=== PATIENT | male | born 1980 | race African-American/Black ===

== ENCOUNTER 2016-08-13 19:21 | Emergency (ER) | payer OTHER ==
[~2016-08-13] VITALS: Ht 167.6 cm; Wt 82.0 kg
[~2016-08-13 19:21] MED LIST: ALBU8I INH; PRED20 PO
[2016-08-13 19:22] VITALS: BP 133/73; PULSE 90; RESP 18; TEMP 98.2; O2SAT 98
[2016-08-13] MEDS ORDERED: DICL50TA3 PO (20:10)
[2016-08-13] MEDS ORDERED: BACT800T5 PO (20:10)
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
[2016-08-13] MEDS ORDERED: LIDOCAINE 1%/EPINEPHrine 1:100,000 SOLN 20 ML VIAL INFIL ONE (20:15)
== END 2016-08-13 20:51 | disposition home or self-care (01) ==
LOC: NEPB 19:21
DX: L72.3 Sebaceous cyst (principal)
CPT/HCPCS: 10061

== ENCOUNTER 2018-04-27 09:09 | Observation (INO) ==
[2018-04-27] MEDS ORDERED: Morphine Inj 4 MG/ML Vial IV.PUSH ONE (09:33)
--- NOTE | 2018-04-27 09:36 | ED ---
HPI General Chief Complaint: Chest Pain Stated Complaint: chest pain Time Seen by Provider: 04/27/18 09:33 Source: patient Mode of arrival: ambulatory Limitations: no limitations History of Present Illness HPI narrative: 37-year-old male with no medical history presenting with complaint of chest pain since yesterday. Onset was at rest while he was getting ready to go to work and he has had several episodes yesterday and today lasting for a couple of minutes. Pain initially feels tight and then has episode of sharp stabbing pain. His grandmother at the age of 45 from heart attack. His blood pressure is elevated today 155/72 and he denies history of hypertension. Denies drugs. MD complaint: Reports chest pain STEMI Alert: No Onset (ago): day(s) (1) Duration: intermittent Onset: during rest Pain location: Reports left chest Severity: moderate Severity scale (1-10): 6 Quality: Reports tightness and sharp Pain radiation: Reports none Relieving factors: nothing Exacerbating factors: nothing Context: Denies recent illness, recent surgery, recent immobilization, recent travel and new medications Associated symptoms: Denies nausea, vomiting, diaphoresis, dyspnea, palpitations and leg swelling Treatments prior to arrival chest pain: Reports none Related Data Home Medications Medication Instructions Recorded Confirmed No Known Home Medications 04/27/18 04/27/18 Allergies Allergy/AdvReac Type Severity Reaction Status Date / Time No Known Allergies Allergy Verified 04/27/18 09:22 Review of Systems ROS: all other systems reviewed are negative Cardiovascular Reports system reviewed and no additional complaints, except as docu Respiratory Reports system reviewed and no additional complaints, except as docu PMFSH Surgical History Surgical History Hx of chest tube placement (Acute) No history of previous surgery (Acute) Social History Social History Substance History: No History of Abuse Second Hand Smoke Exposure: No Smoking Status: Former smoker How Often Do You Have a Drink Containing Alcohol: 2 to 4 times a month Recent Travel in [facility] within the Last 8 Weeks: Yes Recent Out of Country Travel within the Last 8 Weeks: No Substance Abuse Detail Marijuana: Substance Use Status: Active Immunization History Tetanus Immunization: Unsure Exam Narrative Exam Narrative: GENERAL: Alert and oriented in no distress. Well nourished SKIN: Focused skin assessment warm/dry. HEAD: Atraumatic. Normocephalic. EYES: Pupils equal and round. No scleral icterus. No injection or drainage. ENT: No nasal bleeding or discharge. Mucous membranes pink and moist. NECK: Trachea midline. No JVD. CARDIOVASCULAR: Regular rate and rhythm. No murmur appreciated. RESPIRATORY: No accessory muscle use. Clear to auscultation. Breath sounds equal bilaterally. GASTROINTESTINAL: Abdomen soft, non-tender, nondistended. Hepatic and splenic margins not palpable. MUSCULOSKELETAL: No obvious deformities. No clubbing. No cyanosis. No edema. NEUROLOGICAL: Awake and alert. No obvious cranial nerve deficits. Motor grossly within normal limits. Normal speech. PSYCHIATRIC: Appropriate mood and affect; insight and judgment normal. Course Hospital Course: for further evaluation of his chest pain to rule out acute coronary syndrome as well as evaluation for possible new onset diabetes.Cardiac workup was initiated. Was unremarkable. However the patient has a fasting glucose of 200 and no history of diabetes so instead of placing the chest pain unit with admit under observation Reevaluation(s) Reevaluation #1: Resting Comfortably no distress Time: 10:00 Initial Documented Vital Signs Temperature 98.3 F 04/27/18 09:15 Pulse Rate 72 04/27/18 09:15 Respiratory Rate 16 04/27/18 09:15 Blood Pressure 155/72 H 04/27/18 09:15 Pulse Oximetry 98 04/27/18 09:15 Last Documented Vital Signs Temperature 98.0 F 04/27/18 12:00 Pulse Rate 56 L 04/27/18 12:00 Respiratory Rate 18 04/27/18 12:00 Blood Pressure 123/82 04/27/18 12:00 Pulse Oximetry 100 04/27/18 12:00 Medical Decision Making [facility] Narrative Medical Screen Exam Complete: Yes Emergency Medical Condition: Yes Lab Data Result diagrams: 04/27/18 09:40 04/27/18 09:40 Lab Results 04/27/18 04/27/18 04/27/18 Range/Units 09:40 09:40 10:00 WBC 6.2 (4.0-11.0) th/mm3 RBC 4.44 L (4.50-5.90) mil/mm3 Hgb 14.7 (13.0-17.0) gm/dL Hct 41.8 (39.0-51.0) % MCV 94.2 (80.0-100.0) fL MCH 33.1 (27.0-34.0) pg MCHC 35.1 (32.0-36.0) % RDW 13.1 (11.6-17.2) % Plt Count 253 (150-450) th/mm3 MPV 9.0 (7.0-11.0) fL Neut % (Auto) 43.7 (16.0-70.0) % Lymph % (Auto) 34.1 (9.0-44.0) % Gonzales % (Auto) 7.7 (0.0-8.0) % Eos % (Auto) 13.5 H (0.0-4.0) % Baso % (Auto) 1.0 (0.0-2.0) % Neut # (Auto) 2.7 (1.8-7.7) th/mm3 Lymph # (Auto) 2.1 (1.0-4.8) th/mm3 Gonzales # (Auto) 0.5 (0.0-0.9) th/mm3 Eos # (Auto) 0.8 H (0.0-0.4) th/mm3 Baso # (Auto) 0.1 (0.0-0.2) th/mm3 WBC Differential . Differential Comment Auto diff final Sodium 136 (136-145) meq/L Potassium 4.0 (3.5-5.1) meq/L Chloride 103 (98-107) meq/L Carbon Dioxide 24.5 (21.0-32.0) meq/L Anion Gap 9 (5-15) meq/L BUN 10 (7-18) mg/dL Creatinine 1.14 (0.60-1.30) mg/dL Estimated GFR 89 (>89) mL/min POC Glucose (68-110) mg/dl Random Glucose 200 H (74-106) mg/dL Calcium 8.7 (8.5-10.1) mg/dL Total Creatine Kinase 211 (39-308) U/L CK-MB (CK-2) Less than 1.0 (0.5-3.6) ng/mL Troponin I Less than 0.02 L (0.02-0.05) ng/mL Urine Opiates Screen Neg (Neg) Ur Barbiturates Screen Neg (Neg) Ur Amphetamines Screen Neg (Neg) U Benzodiazepines Scrn Neg (Neg) Urine Cocaine Screen Neg (Neg) U Cannabinoids Screen Pos H (Neg) 04/27/18 04/27/18 Range/Units 12:46 13:40 WBC (4.0-11.0) th/mm3 RBC (4.50-5.90) mil/mm3 Hgb (13.0-17.0) gm/dL Hct (39.0-51.0) % MCV (80.0-100.0) fL MCH (27.0-34.0) pg MCHC (32.0-36.0) % RDW (11.6-17.2) % Plt Count (150-450) th/mm3 MPV (7.0-11.0) fL Neut % (Auto) (16.0-70.0) % Lymph % (Auto) (9.0-44.0) % Gonzales % (Auto) (0.0-8.0) % Eos % (Auto) (0.0-4.0) % Baso % (Auto) (0.0-2.0) % Neut # (Auto) (1.8-7.7) th/mm3 Lymph # (Auto) (1.0-4.8) th/mm3 Gonzales # (Auto) (0.0-0.9) th/mm3 Eos # (Auto) (0.0-0.4) th/mm3 Baso # (Auto) (0.0-0.2) th/mm3 WBC Differential Differential Comment Sodium (136-145) meq/L Potassium (3.5-5.1) meq/L Chloride (98-107) meq/L Carbon Dioxide (21.0-32.0) meq/L Anion Gap (5-15) meq/L BUN (7-18) mg/dL Creatinine (0.60-1.30) mg/dL Estimated GFR (>89) mL/min POC Glucose 87 (68-110) mg/dl Random Glucose (74-106) mg/dL Calcium (8.5-10.1) mg/dL Total Creatine Kinase (39-308) U/L CK-MB (CK-2) (0.5-3.6) ng/mL Troponin I Less than 0.02 L (0.02-0.05) ng/mL Urine Opiates Screen (Neg) Ur Barbiturates Screen (Neg) Ur Amphetamines Screen (Neg) U Benzodiazepines Scrn (Neg) Urine Cocaine Screen (Neg) U Cannabinoids Screen (Neg) Imaging Data Radiologist's impression: Chest X-Ray 04/27/18 09:33 CONCLUSION: 1.No acute cardiopulmonary findings. 2. Similar compared to previous dated 02/18/2015 Discharge Plan Discharge Disposition Patient Disposition: 01 Discharge Home Discharge Condition Condition: Stable Discharge Order Discharge Orders: Discharge Order (Routine); Ordered 04/27/18 Ordered By: Emely Jackson Discharge Details Anticipated Discharge Date: 04/27/18 Physicians Team ED Provider: Marty Helms Primary Care Provider: Primary Care Virginia Rodriguez Attending Provider: Corey Shoemaker Status ED Status: Left Department Discharge Information Discharge Date/Time: 04/27/18 12:35
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
[2018-04-27 10:20] LABS: Baso # (Auto) 0.1 th/mm3 (0.0-0.2); Eos # (Auto) 0.8 th/mm3 (0.0-0.4); Eos % (Auto) 13.5 % (0.0-4.0); Hematocrit 41.8 % (39.0-51.0); Hemoglobin 14.7 gm/dL (13.0-17.0); Lymph # (Auto) 2.1 th/mm3 (1.0-4.8); Lymph % (Auto) 34.1 % (9.0-44.0); Mean Corpuscular HGB Conc 35.1 % (32.0-36.0); Mean Corpuscular Hemoglobin 33.1 pg (27.0-34.0); Mean Corpuscular Volume 94.2 fL (80.0-100.0); Mono # (Auto) 0.5 th/mm3 (0.0-0.9); Mono % (Auto) 7.7 % (0.0-8.0); Neut # (Auto) 2.7 th/mm3 (1.8-7.7); Neut % (Auto) 43.7 % (16.0-70.0); Platelet Count 253 th/mm3 (150-450); Red Blood Count 4.44 mil/mm3 (4.50-5.90); Red Cell Distribution Width 13.1 % (11.6-17.2); White Blood Count 6.2 th/mm3 (4.0-11.0)
[2018-04-27 10:37] LABS: Anion Gap 9 meq/L (5-15); Blood Urea Nitrogen 10 mg/dL (7-18); Calcium 8.7 mg/dL (8.5-10.1); Carbon Dioxide 24.5 meq/L (21.0-32.0); Chloride 103 meq/L (98-107); Glomerular Filtration Rate 89 mL/min (>89); Glucose,Random 200 mg/dL (74-106); Sodium 136 meq/L (136-145)
[2018-04-27 10:41] LABS: Creatine Kinase 211 U/L (39-308)
[2018-04-27 11:38] LABS: Amphetamine Screen,Urine Neg (Neg); Barbiturate Screen,Urine Neg (Neg); Cannabinoid Screen,Urine Pos (Neg); Cocaine Screen,Urine Neg (Neg)
[2018-04-27 11:39] LABS: Opiate Screen,Urine Neg (Neg)
[2018-04-27] MEDS ORDERED: Bisacodyl 10 MG Supp RECTAL PRN (11:51)
[2018-04-27] MEDS ORDERED: Acetaminophen 325 MG Tablet PO PRN (11:51)
--- NOTE | 2018-04-27 11:57 | P.HPIM ---
History of Present Illness Service: [facility] Primary Care Physician: No Primary Care Physician Chief Complaint: Chest pain History of Present Illness: Mr. Yañez is a 37-year-old black male with no significant past medical history who presented to the emergency room with complaint of chest pain that started yesterday. Patient indicates that he was getting ready for work yesterday when he started having left chest wall pain that he describes as sharp , "like needles", no radiation, no nausea, no diaphoresis, no dizziness. Increased with deep breathing and palpation. Indicates that he took Motrin and the pain eased off. Indicates that symptoms lasted for about 60 seconds. He had a couple more episodes throughout the day. This morning the symptoms persisted therefore he presented to the emergency room. Patient indicates he had similar symptoms about 6 months ago and did not seek any medical assistance. 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 Denies any type of injury. Denies any history hypertension, no coronary artery disease, no hyperlipidemia, no diabetes. Denies any illegal drug use, urine drug screen positive for marijuana. Does smoke 1 pack/week which he quit 3 days ago. His grandmother at age 45 from a heart attack. Mother is alive and well, no history of coronary artery disease. He does not take any medications at home. In the emergency room, patient was evaluated. Laboratory workup was completed, troponin was negative, EKG was reviewed by me, did not reveal any ST segment elevation. He had a blood glucose of 200 on admission, denies history of diabetes. Indicates that he did drink coffee. Patient received morphine and aspirin, indicates pain is relieved at this time. Has no other complaints, no recent fever, no chills, no nausea, no vomiting, no diarrhea. Patient is admitted for further evaluation and treatment. - Diagnosis (1) Atypical chest pain Review of Systems All other systems reviewed negative except as stated in [place] - History History Provided By: Patient - Medical History Medical History: Medical History (Last Updated 04/27/18 @ 16:48 by GABBY Hernandez) Patient denies medical problems - Surgical History Surgical History: Surgical History (Last Reviewed 04/27/18 @ 16:48 by GABBY Hernandez) Hx of chest tube placement No history of previous surgery - Family History Family History: Family History (Last Updated 04/27/18 @ 16:49 by GABBY Hernandez) Grandparent Myocardial infarct Father Throat cancer - Social History I have reviewed the patient's Social History: Yes - Tobacco History Second Hand Smoke Exposure: No Smoking Status: Former smoker (quit smoking 3 days ago, smoked 1 pack per week since age 20) - Alcohol History How Often Do You Have a Drink Containing Alcohol: 2 to 4 times a month - Substance Use History Substance History: Active Abuse (marijuana) - Substance Use Type Marijuana Status: Active - Travel History Recent Travel in the [place] Within the Last 8 Weeks: No Recent Travel Out of the Country Within the Last 8 Weeks: No - Immunization History Tetanus Immunization: Unsure Medications and Allergies Active Medications: Active Medications Acetaminophen (Tylenol) 650 mg PO Q4H PRN PRN Reason: Temp > 100.4 Al Hydroxide/Mg Hydroxide (Milk Of Magnesia Liq) 30 ml PO Q12H PRN PRN Reason: Mild Constipation Bisacodyl (Dulcolax Supp) 10 mg RECTAL DAILY PRN PRN Reason: SEVERE CONSITIPATION Lactulose (Lactulose Liq) 30 ml PO DAILY PRN PRN Reason: SEVERE CONSITIPATION Ondansetron HCl (Zofran Inj) 4 mg IV.PUSH Q6H PRN PRN Reason: NAUSEA OR VOMITING Senna/Docusate Sodium ([place]id-Colace) 1 tab PO BID TAMERA Sennosides (Senokot) 17.2 mg PO Q12H PRN PRN Reason: Moderate Constipation Sodium Chloride (Ns Flush) 2 ml IV.FLUSH UNSCH PRN PRN Reason: FLUSH AFTER USING IV ACCESS Allergies Allergy/AdvReac Type Severity Reaction Status Date / Time No Known Allergies Allergy Verified 04/27/18 09:22 Home Medications Medication Instructions Recorded Confirmed Type No Known Home Medications 04/27/18 04/27/18 History Exam Vital signs: Vital Signs 04/27/18 09:15 04/27/18 09:33 04/27/18 10:15 Temperature 98.3 F Pulse Rate 72 66 Respiratory Rate 16 16 Blood Pressure 155/72 H 127/67 Pulse Oximetry 98 97 97 Intake & Output 04/26/18 04/27/18 04/27/18 18:59 06:59 18:59 Weight 70.76 kg Narrative: GENERAL: Well-nourished, well-developed patient in no apparent distress. SKIN: Warm and dry. HEAD: Atraumatic. Normocephalic. EYES: Pupils equal and round. No scleral icterus. No injection or drainage. ENT: No nasal bleeding or discharge. Mucous membranes pink and moist. NECK: Trachea midline. No JVD. CARDIOVASCULAR: Regular rate and rhythm. CHEST: No chest wall abnormality noted, reproducible chest discomfort when palpating left anterior chest wall above breast. RESPIRATORY: No accessory muscle use. Clear to auscultation. Breath sounds equal bilaterally. GASTROINTESTINAL: Abdomen soft, non-tender, nondistended. Hepatic and splenic margins not palpable. MUSCULOSKELETAL: Extremities without clubbing, cyanosis, or edema. No obvious deformities. NEUROLOGICAL: Awake and alert. No obvious cranial nerve deficits. Motor grossly within normal limits. Five out of 5 muscle strength in the arms and legs. Normal speech. PSYCHIATRIC: Appropriate mood and affect; insight and judgment normal. Results - Labs CBC & Chem 7: 04/27/18 09:40 04/27/18 09:40 Labs: Short CBC 04/27/18 Range/Units 09:40 WBC 6.2 (4.0-11.0) th/mm3 Hgb 14.7 (13.0-17.0) gm/dL Hct 41.8 (39.0-51.0) % Plt Count 253 (150-450) th/mm3 BMP 04/27/18 09:40 Sodium 136 Potassium 4.0 Chloride 103 Carbon Dioxide 24.5 BUN 10 Creatinine 1.14 Calcium 8.7 Cardiac Enzymes 04/27/18 Range/Units 09:40 Total Creatine Kinase 211 (39-308) U/L CK-MB (CK-2) Less than 1.0 (0.5-3.6) ng/mL Troponin I Less than 0.02 L (0.02-0.05) ng/mL - Imaging Impressions Chest X-Ray 04/27/18 09:33 CONCLUSION: 1.No acute cardiopulmonary findings. 2. Similar compared to previous dated 02/18/2015 Caprini VTE Risk Assessment Caprini VTE Risk Assessment: No/Low Risk (score <= 1) Caprini Risk Assessment Model: Point Value = 1 Point Value = 2 Point Value = 3 Point Value = 5 Age 41-60 Minor surgery BMI > 25 kg/m2 Swollen legs Varicose veins or History of unexplained or recurrent spontaneous Oral contraceptives or hormone replacement Sepsis (< 1 month) Serious lung disease, including pneumonia (< 1 month) Abnormal pulmonary function Acute myocardial infarction Congestive heart failure (< 1 month) History of inflammatory bowel disease Medical patient at bed rest Age 61-74 Arthroscopic surgery Major open surgery (> 45 min) Laparoscopic surgery (> 45 min) Malignancy Confined to bed (> 72 hours) Immobilizing plaster cast Central venous access Age >= 75 History of VTE Family history of VTE Factor V Leiden Prothrombin [id number] Lupus anticoagulant Anticardiolipin antibodies Elevated serum homocysteine Heparin-induced thrombocytopenia Other congenital or acquired thrombophilia Stroke (< 1 month) Elective arthroplasty Hip, pelvis, or leg fracture Acute spinal cord injury (< 1 month) Prophylaxis Regimen: Total Risk Factor Score Risk Level Prophylaxis Regimen 0-1 Low Early ambulation 2 Moderate Order ONE of the following: *Sequential Compression Device (SCD) *Heparin 5000 units SQ BID 3-4 Higher Order ONE of the following medications: *Heparin 5000 units SQ TID *Enoxaparin/Lovenox 40 mg SQ daily (WT < 150 kg, CrCl > 30 mL/min) *Enoxaparin/Lovenox 30 mg SQ daily (WT < 150 kg, CrCl > 10-29 mL/min) *Enoxaparin/Lovenox 30 mg SQ BID (WT < 150 kg, CrCl > 30 mL/min) AND/OR *Sequential Compression Device (SCD) 5 or more Highest Order ONE of the following medications: *Heparin 5000 units SQ TID (Preferred with Epidurals) *Enoxaparin/Lovenox 40 mg SQ daily (WT < 150 kg, CrCl > 30 mL/min) *Enoxaparin/Lovenox 30 mg SQ daily (WT < 150 kg, CrCl > 10-29 mL/min) *Enoxaparin/Lovenox 30 mg SQ BID (WT < 150 kg, CrCl > 30 mL/min) AND *Sequential Compression Device (SCD) Assessment and Plan - Assessment (1) Atypical chest pain Code(s): R07.89 - Other chest pain Status: Acute - Plan 37-year-old white male presented to emergency room with complaint of left-sided chest wall pain, increased with deep breathing and palpation, sharp, lasting 60 seconds, rates it at 7. Was relieved by Motrin. EKG negative, no acute ST segment elevation. Troponin negative. Blood pressure elevated, 155/72s, denies history of hypertension. Glucose elevated, 200. No history of diabetes Atypical chest pain-pain does not appear cardiac in nature, reproducible with palpation, likely musculoskeletal. First troponin and EKG negative for ACS. No significant risk factors, grandmother at age 45. No coronary artery disease in first-degree relatives. Cardiac telemetry monitoring Troponin x1, negative, will repeat one more. If troponin elevated, will order Lexiscan. -Keep n.p.o. for now -Continue with aspirin 325 mg p.o. daily Elevated blood glucose, denies history of diabetes Repeat blood glucose and if elevated will placed on insulin scale Hemoglobin A1c has been ordered Elevated blood pressure, likely secondary to stress response Blood pressure trending down Continue to monitor Tobacco abuse, recently quit Encouraged to continue abstaining Positive marijuana use Counseling done Repeat one more troponin, if negative patient likely to be discharge with follow -up as outpatient with PCP Code Status: Full code Discussed Condition With: RN, pt, Discharge Planning: Poss dc today 1300-pt. re-assessed. Second trop negative. Blood glucose 87. Pt. denies any CP, BP trending down. Follow-up with PCP, if not available at this time can go to the [facility] in 1 week Encouraged to continue abstaining from cigarette smoking Discussed importance of diet, exercise
[2018-04-27 13:14] VITALS: BP 123/82; PULSE 56; RESP 18; TEMP 98; O2SAT 100
[2018-04-27] MEDS ORDERED: Dextrose 50% in Water 50 ML Vial IV.PUSH PRN (13:31)
[2018-04-27 15:15] LABS: Hemoglobin A1c 5.9 % (4.3-6.0)
[2018-04-27] MEDS ORDERED: Insulin NovoLIN Regular Correctional Sugar Inj SQ SCH (17:00)
[2018-04-27] MEDS ORDERED: Senna/Docusate Sodium 8.6/50 MG Tablet PO SCH (21:00)
--- NOTE | 2018-04-28 15:01 | ECG ---
Date Performed: 04/27/2018 Time Performed: 09:22:29 PTAGE: 37 years EKG: Sinus rhythm NORMAL ECG PREVIOUS TRACING : 11/16/2014 01.25 Since the previous tracing, no significant change noted DOCTOR: Mike Portillo Interpretating Date/Time 04/28/2018 15:00:00
--- NOTE | 2018-04-28 15:02 | ECG ---
Date Performed: 04/27/2018 Time Performed: 13:11:26 PTAGE: 37 years EKG: SINUS BRADYCARDIA POSSIBLE RIGHT VENTRICULAR CONDUCTION DELAY BORDERLINE ECG PREVIOUS TRACING :04/27/2018 @09..29 Compared to previous tracing, the slight right ventricul ar conduction delay is new . DOCTOR: Mike Portillo Interpretating Date/Time 04/28/2018 15:00:39
== END 2018-04-27 14:10 | disposition home or self-care (01) ==
LOC: NEDA 09:09 → NEPC 09:09 → NEPFCDU 12:35
PROVIDERS: ADMIT Internal Medicine; ATTEND Internal Medicine
DX: R73.9 Hyperglycemia, unspecified; R03.0 Elevated blood-pressure reading, without diagnosis of hypertension; F12.90 Cannabis use, unspecified, uncomplicated; R07.89 Other chest pain; Z87.891 Personal history of nicotine dependence